=== PATIENT | female | born 1955 | race Caucasian/White ===

== ENCOUNTER 2016-09-05 12:33 | Outpatient (CLI) | payer OTHER ==
[2016-08-15 13:14] VITALS: O2SAT 97
== END 2016-09-05 12:34 | disposition home or self-care (01) | DRG 561 ==
LOC: CONVCARE 12:33
PROVIDERS: ATTEND Orthopaedic Surgery
DX: Z47.1 Aftercare following joint replacement surgery (principal); Z96.651 Presence of right artificial knee joint
CPT/HCPCS: 73560

== ENCOUNTER 2017-02-20 22:44 | Observation (INO) | payer OTHER ==
[2017-02-20] MEDS ORDERED: DEXTROSE 50% 1 VIAL SOL IV PRN (23:52)
[2017-02-20] MEDS ORDERED: GLUCAGON HYDROCHLORIDE 1 MG PDS IM PRN (23:52)
[2017-02-21] MEDS ORDERED: ALBUTEROL HFA 60 PUFF/INHALER INH PRN (01:16)
[2017-02-21] MEDS ORDERED: BUDESONIDE 0.5 MG/2 ML AMPUL.NEB INH PRN (01:16)
[2017-02-21] MEDS ORDERED: ALBUTEROL NEB SOL 2.5MG/3ML 1 VIAL SOL INH PRN (01:16)
[2017-02-21] MEDS ORDERED: FLUTICASONE PROPIONATE TOP PRN (01:16)
[2017-02-21 01:27] VITALS: TEMP 98.2
[2017-02-21] MEDS ORDERED: DULAGLUTIDE 0.75 MG SQ SCH (01:30)
[2017-02-21] MEDS ORDERED: NOVOLOG FLEXPEN SC SCH ×3 (07:00→09:00)
[2017-02-21 07:54] VITALS: BP 143/75
[2017-02-21] MEDS ORDERED: ACETAMINOPHEN 500 MG 500 MG TAB PO ONE (08:19)
[2017-02-21 08:36] LABS: POTASSIUM 3.4 mMol/L (3.5-5.1)
[2017-02-21 08:41] LABS: CALCIUM 9.7 mg/dl (8.5-10.1)
[2017-02-21 08:46] LABS: HEMOGLOBIN A1C 7.1 % (4.8-6.0)
[2017-02-21] MEDS ORDERED: SERTRALINE HYDROCHLORIDE 50 MG TAB PO SCH (09:00)
[2017-02-21] MEDS ORDERED: HYDROCHLOROTHIAZIDE/TRIAMTER 25/37.5 CAPSULE PO SCH (09:00)
[2017-02-21] MEDS ORDERED: GABAPENTIN 300 MG CAP PO SCH (09:00)
[2017-02-21] MEDS ORDERED: AZITHROMYCIN 250 MG TAB PO SCH (09:00)
[2017-02-21] MEDS ORDERED: PROBENECID 500 MG PO SCH (09:00)
[2017-02-21] MEDS ORDERED: INSULIN GLARGINE, RECOMBINAN 100 U/ML SOL SC SCH ×4 (09:00→21:00)
[2017-02-21] MEDS ORDERED: CHOLECALCIFEROL 1,000 IU TAB PO SCH (09:00)
[2017-02-21] MEDS ORDERED: POTASSIUM CHLORIDE 10 MEQ TER PO SCH (09:00)
[2017-02-21] MEDS ORDERED: CLONIDINE 0.1 MG TAB PO SCH (09:00)
[2017-02-21] MEDS ORDERED: Non-Formulary Medication MISC (Budesonide/Formoterol 160/4.5 1 PUFF) IH SCH (09:00)
[2017-02-21] MEDS ORDERED: [UNRECOGNIZED DRUG - MIXTURE] PO SCH (09:00)
[2017-02-21] MEDS ORDERED: PREDNISONE 20 MG TAB PO SCH (09:00)
[2017-02-21] MEDS ORDERED: PANTOPRAZOLE SODIUM 40 MG ECT PO SCH (09:15)
[2017-02-21] MEDS ORDERED: DILTIAZEM XR 180 MG C24 PO SCH (09:15)
[2017-02-21] MEDS ORDERED: CLOTRIMAZOLE 1% CREAM TOP PRN (09:15)
[2017-02-21] MEDS: HUMALOG PEN 100 U/ML SC SCH ×4 (09:18→12:00)
[2017-02-21] MEDS ORDERED: CALCIUM CARBONATE 500 MG TAB PO SCH (09:30)
[2017-02-21 10:16] VITALS: O2SAT 96
[2017-02-21 10:28] VITALS: PULSE 88; RESP 20
[2017-02-21] MEDS ORDERED: POTASSIUM CHLORIDE 10 MEQ TER PO ONE (10:46)
[2017-02-21] MEDS ORDERED: SIMVASTATIN 20 MG TAB PO SCH (21:00)
[2017-02-21] MEDS ORDERED: MONTELUKAST SODIUM 10 MG TAB PO SCH (21:00)
== END 2017-02-21 13:30 | disposition home or self-care (01) | DRG 639 ==
LOC: ED 22:44 → ACUTE CARE 23:36
PROVIDERS: ADMIT Family Medicine; ATTEND Family Medicine
DX: E11.65 Type 2 diabetes mellitus with hyperglycemia (principal); Z79.4 Long term (current) use of insulin
CPT/HCPCS: 36415; 80048; 82962; 83036; 94640; 99218; 99282; J1815; J1817; J7603

== ENCOUNTER 2017-07-17 09:43 | Outpatient (CLI) | payer OTHER ==
[2017-04-10 08:36] VITALS: O2SAT 94
== END 2017-07-17 09:44 | disposition home or self-care (01) | DRG 561 ==
LOC: CONVCARE 09:43
PROVIDERS: ATTEND Orthopaedic Surgery
DX: Z47.1 Aftercare following joint replacement surgery (principal); Z96.651 Presence of right artificial knee joint
CPT/HCPCS: 73562

== ENCOUNTER 2017-09-20 09:16 | Day surgery (SDC) | payer OTHER ==
[2017-09-20] MEDS ORDERED: PROPOFOL 500 MG/50 ML EMU IV ONE (10:15)
[2017-09-20] MEDS ORDERED: LIDOCAINE HCL 1% MPF SOL ONE (10:15)
[2017-09-20] MEDS ORDERED: FENTANYL 100MCG/2ML SOL ONE (10:16)
[2017-09-20] MEDS ORDERED: BUPIVACAINE/EPI 0.5% 10 ML SOL INFIL ONE ×2 (10:32)
[2017-09-20 11:59] VITALS: PULSE 80; RESP 16
[2017-09-20 12:08] VITALS: BP 113/73; TEMP 97; O2SAT 96
== END 2017-09-20 12:20 | disposition home or self-care (01) | DRG 607 ==
LOC: SURG 09:16
PROVIDERS: ATTEND Surgery
DX: L72.3 Sebaceous cyst (principal)
CPT/HCPCS: 99001; G0168; J3010; J2001; J2704

== ENCOUNTER 2017-09-23 18:25 | Emergency (ER) | payer OTHER ==
[2017-09-23 19:17] VITALS: BP 134/76; PULSE 85; RESP 20; TEMP 98.1; O2SAT 97
[2017-09-23] MEDS ORDERED: LIDOCAINE HCL 1% 50 MG/5 ML SOL INFIL ONE (19:38)
[2017-09-23] MEDS ORDERED: LIDOCAINE HCL 1% MPF SOL ONE (19:40)
== END 2017-09-23 20:10 | disposition home or self-care (01) | DRG 921 ==
LOC: ED 18:25
DX: T81.30XA Disruption of wound, unspecified, initial encounter (principal); S31.103A Unspecified open wound of abdominal wall, right lower quadrant without penetration into peritoneal cavity, initial encounter; Z98.890 Other specified postprocedural states
CPT/HCPCS: 12001; 99283; J2001

== ENCOUNTER 2018-06-19 07:30 | Day surgery (SDC) | payer BC, MEDICARE, OTHER ==
[2018-06-19] MEDS ORDERED: BUPIVACAINE HCL 0.25% MPF 30 ML SOL INFIL ONE (08:08)
[2018-06-19] MEDS: DEXAMETHASONE SOD PHOS PF 10 MG/ML SOL IJ ONE ×3 (08:30→08:41)
[2018-06-19 08:51] VITALS: BP 161/63; PULSE 101; RESP 14; TEMP 98.1; O2SAT 94
== END 2018-06-19 09:10 | disposition home or self-care (01) | DRG 552 ==
LOC: SURG 07:30
PROVIDERS: ATTEND Nurse Anesthetist, Certified Registered
DX: M48.062 Spinal stenosis, lumbar region with neurogenic claudication (principal); E11.9 Type 2 diabetes mellitus without complications
CPT/HCPCS: J1100

== ENCOUNTER 2018-08-12 10:27 | Observation (INO) | payer OTHER ==
[2018-08-12] MEDS ORDERED: ONDANSETRON HCL 4 MG/2 ML SOL ONE (10:33)
[2018-08-12] MEDS ORDERED: SODIUM CHLORIDE 0.9% 1000ML 1,000 ML IV ONE (10:34)
[2018-08-12] MEDS ORDERED: ONDANSETRON HCL 4 MG/2 ML SOL IV ONE (10:34)
[2018-08-12] MEDS ORDERED: SODIUM CHLORIDE 0.9% FLUSH 10 ML SOL IV PRN (10:46)
[2018-08-12 10:55] LABS: BASOPHILS % (AUTO) 1 % (0-3); EOSINOPHILS % (AUTO) 2 % (0-9); HEMATOCRIT 42 % (35-47); HEMOGLOBIN 13.8 gm/dl (12.0-15.5); LYMPHOCYTES % (AUTO) 30.1 % (10-50); MEAN CORPUSCULAR HGB CONC 32.9 gm/dl (32.0-36.0); MEAN CORPUSCULAR VOLUME 88 fL (81-99); MONOCYTES % (AUTO) 5.6 % (0-12); NEUTROPHILS % (AUTO) 61.7 % (37-80)
[2018-08-12 11:09] LABS: ALBUMIN 3.3 gm/dl (3.4-5.0); BILIRUBIN,TOTAL 0.8 mg/dl (0.2-1.0); CALCIUM 8.9 mg/dl (8.5-10.1); CARBON DIOXIDE 29.4 mEq/L (21-32); CREATININE 1.2 mg/dl (0.60-1.00); POTASSIUM 3.7 mMol/L (3.5-5.1); TOTAL PROTEIN 7.2 gm/dl (6.4-8.2)
[2018-08-12] MEDS ORDERED: PROCHLORPERAZINE EDISYLATE 5 MG/ML SOL ONE (11:32)
[2018-08-12] MEDS ORDERED: PROCHLORPERAZINE EDISYLATE 5 MG/ML SOL IV ONE (11:32)
[2018-08-12 13:45] LABS: APPEARANCE,URINE Clear; BILIRUBIN,URINE NEGATIVE (NEGATIVE); COLOR,URINE Yellow; GLUCOSE, URINE (UA) NEGATIVE (NEGATIVE); KETONES,URINE NEGATIVE (NEGATIVE); LEUKOCYTE ESTERASE ,URINE NEGATIVE (NEGATIVE); NITRATE,URINE NEGATIVE (NEGATIVE); OCCULT BLOOD,URINE NEGATIVE (NEG-TRACE); PH,URINE 5.5; UROBILINOGEN,URINE 0.2 (0.2-1.0 EU)
[2018-08-12 13:55] LABS: BACTERIA 1+ (< 1+); CRYSTALS NEGATIVE (0-3 AVE/HPF); EPITHELIAL CELLS 0-1 (SQUAMOUS); RBC,URINE 0-1 (0-3AV/HPF); WBC,URINE 0-1 (0-5AV/HPF)
[2018-08-12] MEDS ORDERED: ALBUTEROL HFA 60 PUFF/INHALER INH PRN (16:48)
[2018-08-12] MEDS ORDERED: KETOCONAZOLE CREAM 2% CRE TP PRN (16:48)
[2018-08-12] MEDS ORDERED: FLUTICASONE 110 MCG INH PRN (16:48)
[2018-08-12] MEDS ORDERED: ALENDRONATE 70 MG TAB PO SCH (17:00)
[2018-08-12] MEDS ORDERED: GABAPENTIN 300 MG CAP PO SCH (18:00)
[2018-08-12] MEDS: NOVOLOG FLEXPEN SC SCH ×2 (18:47→20:44)
[2018-08-12] MEDS ORDERED: MONTELUKAST SODIUM 10 MG TAB ONE (20:00)
[2018-08-12] MEDS ORDERED: CLONIDINE 0.1 MG TAB ONE (20:33)
[2018-08-12] MEDS: PROBENECID 500 MG PO SCH (20:41)
[2018-08-12] MEDS: MECLIZINE HYDROCHLORIDE 12.5 MG TAB PO SCH (20:41)
[2018-08-12] MEDS: PANTOPRAZOLE SODIUM 40 MG ECT PO SCH (20:42)
[2018-08-12] MEDS ORDERED: MONTELUKAST SODIUM 5 MG CTB PO SCH (21:00)
[2018-08-12] MEDS ORDERED: SIMVASTATIN 20 MG TAB PO SCH (21:00)
[2018-08-12] MEDS ORDERED: OMEPRAZOLE 20 MG CAPSULE PO SCH (21:00)
[2018-08-12] MEDS ORDERED: CALCIUM CARBONATE PO SCH (21:00)
[2018-08-12] MEDS ORDERED: VITAMIN D3 PO SCH (21:00)
[2018-08-12] MEDS ORDERED: AMITRIPTYLINE 25 MG TAB PO SCH (21:00)
[2018-08-12] MEDS ORDERED: CLONIDINE 0.2 MG PO SCH (21:00)
[2018-08-12] MEDS ORDERED: [UNRECOGNIZED DRUG - OTHER] PO SCH (21:00)
[2018-08-12] MEDS: CLONIDINE 0.1 MG TAB PO SCH (21:06)
[2018-08-13 07:18] LABS: CALCIUM 8.3 mg/dl (8.5-10.1); CARBON DIOXIDE 32.6 mEq/L (21-32); CREATININE 1.12 mg/dl (0.60-1.00); POTASSIUM 3.4 mMol/L (3.5-5.1)
[2018-08-13] MEDS: NOVOLOG FLEXPEN SC SCH ×2 (07:49→11:55)
[2018-08-13 07:53] VITALS: BP 123/74; PULSE 77; RESP 20; TEMP 97.7; O2SAT 97
[2018-08-13] MEDS ORDERED: POTASSIUM CHLORIDE 10 MEQ TER PO SCH (09:00)
[2018-08-13] MEDS ORDERED: IRON PO SCH (09:00)
[2018-08-13] MEDS ORDERED: MAGNESIUM 250 MG PO SCH (09:00)
[2018-08-13] MEDS ORDERED: [UNRECOGNIZED DRUG - OTHER] PO SCH (09:00)
[2018-08-13] MEDS ORDERED: DILTIAZEM 180 MG PO SCH (09:00)
[2018-08-13] MEDS ORDERED: HERBAL CMPLX PO SCH (09:00)
[2018-08-13] MEDS ORDERED: MV MN PO SCH (09:00)
[2018-08-13] MEDS: PROBENECID 500 MG PO SCH (09:12)
[2018-08-13] MEDS: INSULIN DEGLUDEC 200 UNIT/ML INSULN.PEN SQ SCH ×2 (09:12→09:13)
[2018-08-13] MEDS: CLONIDINE 0.1 MG TAB PO SCH (09:18)
[2018-08-13] MEDS: MECLIZINE HYDROCHLORIDE 12.5 MG TAB PO SCH ×2 (09:18→14:04)
[2018-08-13] MEDS: PANTOPRAZOLE SODIUM 40 MG ECT PO SCH (09:18)
[2018-08-13] MEDS ORDERED: MAGNESIUM OXIDE 400 MG TAB PO SCH (09:30)
[2018-08-13] MEDS ORDERED: HYDROCHLOROTHIAZIDE/TRIAMTER 25/37.5 CAPSULE PO SCH (09:30)
[2018-08-13] MEDS ORDERED: DILTIAZEM XR 180 MG C24 PO SCH (09:30)
[2018-08-13] MEDS ORDERED: MONTELUKAST SODIUM 10 MG TAB PO SCH (21:00)
[2018-08-16] MEDS ORDERED: ALENDRONATE 70 MG TAB PO SCH (17:00)
== END 2018-08-13 15:10 | disposition home or self-care (01) | DRG 149 ==
LOC: ED 10:27 → ACUTE CARE 15:08 → UNDOADMIN 15:08 → ACUTE CARE 15:10 → INTOOBSV 15:10 → ACUTE CARE 15:15 → UNDOADMIN 15:15 → UNDODISIN 08-13 15:10
PROVIDERS: ADMIT Family Medicine; ATTEND Family Medicine
DX: R42 Dizziness and giddiness (principal); R11.2 Nausea with vomiting, unspecified; Z79.4 Long term (current) use of insulin; E11.9 Type 2 diabetes mellitus without complications
CPT/HCPCS: 36415; 70450; 74176; 80048; 80053; 81001; 82962; 83880; 84484; 85025; 93005; 93012; 96365; 96366; 96374; 96375; 99220; 99285; J0780; J2405; A9270-GY; J1815

== ENCOUNTER 2018-08-14 17:54 | Observation (INO) | payer OTHER ==
[2018-08-14] MEDS: SODIUM CHLORIDE 0.9% FLUSH 10 ML SOL IV SCH ×2 (18:15→18:36)
[2018-08-14] MEDS: ONDANSETRON HCL 4 MG/2 ML SOL IV PRN (18:35)
[2018-08-14] MEDS ORDERED: HYDROMORPHONE 1 MG/ML SYRINGE IV ONE (19:30)
[2018-08-14] MEDS ORDERED: MONTELUKAST SODIUM 5 MG CTB PO SCH (21:00)
[2018-08-14] MEDS ORDERED: NOVOLOG FLEXPEN SC SCH (21:00)
[2018-08-14] MEDS: PROCHLORPERAZINE EDISYLATE 5 MG/ML SOL IV SCH (21:53)
[2018-08-14] MEDS: DEXTROSE/SALINE 0.45/KCL 20MEQ 1,000 ML/1,000 ML SOL IV SCH (21:54)
[2018-08-14] MEDS: AMITRIPTYLINE 25 MG TAB PO SCH (21:57)
[2018-08-14] MEDS: PROBENECID 500 MG PO SCH (22:04)
[2018-08-14] MEDS: CLONIDINE 0.1 MG TAB PO SCH (22:05)
[2018-08-15] MEDS: ONDANSETRON HCL 4 MG/2 ML SOL IV PRN (01:08)
[2018-08-15] MEDS: SODIUM CHLORIDE 0.9% FLUSH 10 ML SOL IV SCH ×5 (01:18→18:21)
[2018-08-15] MEDS: PROCHLORPERAZINE EDISYLATE 5 MG/ML SOL IV SCH ×3 (03:24→14:35)
[2018-08-15] MEDS: DEXTROSE/SALINE 0.45/KCL 20MEQ 1,000 ML/1,000 ML SOL IV SCH ×2 (06:07→18:17)
[2018-08-15] MEDS ORDERED: LORAZEPAM 2 MG/ML SOL IV PRN (08:22)
[2018-08-15] MEDS ORDERED: DILTIAZEM 180 MG PO SCH (09:00)
[2018-08-15] MEDS ORDERED: PANTOPRAZOLE SODIUM 40 MG/10 ML PDS IV SCH (09:00)
[2018-08-15] MEDS ORDERED: INSULIN DEGLUDEC SQ SCH (09:00)
[2018-08-15] MEDS: NOVOLOG FLEXPEN SC SCH ×6 (09:14→17:27)
[2018-08-15 09:19] LABS: BASOPHILS % (AUTO) 1 % (0-3); EOSINOPHILS % (AUTO) 2 % (0-9); HEMATOCRIT 45 % (35-47); HEMOGLOBIN 14.7 gm/dl (12.0-15.5); LYMPHOCYTES % (AUTO) 30.8 % (10-50); MEAN CORPUSCULAR HEMOGLOBIN 28.7 pg (27.0-32.0); MEAN CORPUSCULAR HGB CONC 32.5 gm/dl (32.0-36.0); MEAN CORPUSCULAR VOLUME 88 fL (81-99); NEUTROPHILS % (AUTO) 59.5 % (37-80)
[2018-08-15] MEDS ORDERED: DIPHENHYDRAMINE 50 MG/ML SOL IV PRN (09:26)
[2018-08-15] MEDS ORDERED: EPINEPHRINE 1:1000 AMP 1 MG/ML SOL IM PRN (09:28)
[2018-08-15 09:31] LABS: ALBUMIN 3.1 gm/dl (3.4-5.0); BILIRUBIN,TOTAL 1.1 mg/dl (0.2-1.0); CALCIUM 8.8 mg/dl (8.5-10.1); CARBON DIOXIDE 32.1 mEq/L (21-32); CREATININE 1.01 mg/dl (0.60-1.00); POTASSIUM 3.4 mMol/L (3.5-5.1); TOTAL PROTEIN 7.2 gm/dl (6.4-8.2)
[2018-08-15] MEDS: PROBENECID 500 MG PO SCH ×2 (11:20→20:34)
[2018-08-15] MEDS: CLONIDINE 0.1 MG TAB PO SCH ×2 (11:21→20:33)
[2018-08-15] MEDS: HYDROCHLOROTHIAZIDE/TRIAMTER 25/37.5 CAPSULE PO SCH (11:26)
[2018-08-15] MEDS: DILTIAZEM XR 180 MG C24 PO SCH (11:36)
[2018-08-15] MEDS ORDERED: POTASSIUM CHLORIDE 10 MEQ CAPSULE PO ONE (17:15)
[2018-08-15] MEDS ORDERED: ONDANSETRON HCL 4 MG TAB PO PRN (17:20)
[2018-08-15] MEDS ORDERED: PROCHLORPERAZINE MALEATE 5 MG TAB PO PRN (17:20)
[2018-08-15] MEDS ORDERED: GABAPENTIN 300 MG CAP PO SCH (18:00)
[2018-08-15] MEDS ORDERED: POTASSIUM CHLORIDE 10 MEQ TER ONE (18:00)
[2018-08-15] MEDS: AMITRIPTYLINE 25 MG TAB PO SCH (20:33)
[2018-08-15] MEDS ORDERED: MONTELUKAST SODIUM 10 MG TAB PO SCH (21:00)
[2018-08-16 07:17] LABS: ALBUMIN 2.9 gm/dl (3.4-5.0); CALCIUM 8.5 mg/dl (8.5-10.1); CARBON DIOXIDE 31.3 mEq/L (21-32); CREATININE 1.1 mg/dl (0.60-1.00); POTASSIUM 3.8 mMol/L (3.5-5.1)
[2018-08-16 07:54] VITALS: RESP 20; TEMP 97.5
[2018-08-16] MEDS: NOVOLOG FLEXPEN SC SCH ×4 (08:52→12:47)
[2018-08-16] MEDS ORDERED: PANTOPRAZOLE SODIUM 40 MG ECT PO SCH (09:00)
[2018-08-16 09:01] VITALS: BP 129/77; PULSE 89; O2SAT 98
[2018-08-16] MEDS: CLONIDINE 0.1 MG TAB PO SCH (09:16)
[2018-08-16] MEDS: DILTIAZEM XR 180 MG C24 PO SCH (09:16)
[2018-08-16] MEDS: INSULIN DEGLUDEC SQ SCH ×2 (09:18→09:20)
[2018-08-16] MEDS: HYDROCHLOROTHIAZIDE/TRIAMTER 25/37.5 CAPSULE PO SCH (09:22)
[2018-08-16] MEDS: PROBENECID 500 MG PO SCH (09:22)
== END 2018-08-16 14:20 | disposition home or self-care (01) | DRG 149 ==
LOC: ACUTE CARE 18:01
PROVIDERS: ADMIT Family Medicine; ATTEND Family Medicine
DX: R42 Dizziness and giddiness (principal); R11.2 Nausea with vomiting, unspecified; E86.0 Dehydration; E11.9 Type 2 diabetes mellitus without complications; Z79.4 Long term (current) use of insulin
CPT/HCPCS: 36415; 70544; 70551; 80053; 82962; 85025; J0780; J1200; J2060; J2405; A9270-GY; J1170; J1815

== ENCOUNTER → 2018-08-28 | Day surgery (SDC) | payer OTHER ==
[~2018-08-28] MED LIST: BUPIVACAINE HCL 0.25% MPF 30 ML SOL INFIL ONE
[2018-08-28 13:48] VITALS: TEMP 98.2
[2018-08-28] MEDS: DEXAMETHASONE SOD PHOS PF 10 MG/ML SOL IJ ONE (14:28)
[2018-08-28 14:31] VITALS: RESP 24
[2018-08-28 14:41] VITALS: BP 133/69; PULSE 92; O2SAT 94
== END | disposition home or self-care (01) | DRG 552 ==
LOC: SURG 13:26
PROVIDERS: ATTEND Nurse Anesthetist, Certified Registered
DX: M51.17 Intervertebral disc disorders with radiculopathy, lumbosacral region (principal); E11.9 Type 2 diabetes mellitus without complications
CPT/HCPCS: J1100

== ENCOUNTER 2018-09-01 10:49 | Emergency (ER) | payer OTHER ==
[2018-09-01 11:12] VITALS: TEMP 97.3
[2018-09-01] MEDS ORDERED: ONDANSETRON HCL 4 MG/2 ML SOL IV ONE (11:12)
[2018-09-01] MEDS ORDERED: ONDANSETRON HCL 4 MG/2 ML SOL ONE (11:12)
[2018-09-01 11:14] LABS: BASOPHILS % (AUTO) 1 % (0-3); EOSINOPHILS % (AUTO) 1 % (0-9); HEMATOCRIT 47 % (35-47); HEMOGLOBIN 15.5 gm/dl (12.0-15.5); LYMPHOCYTES % (AUTO) 26.4 % (10-50); MEAN CORPUSCULAR HEMOGLOBIN 29.1 pg (27.0-32.0); MEAN CORPUSCULAR HGB CONC 33.3 gm/dl (32.0-36.0); MEAN CORPUSCULAR VOLUME 88 fL (81-99); MONOCYTES % (AUTO) 6.1 % (0-12); NEUTROPHILS % (AUTO) 65.4 % (37-80)
[2018-09-01 11:26] LABS: ALBUMIN 3.6 gm/dl (3.4-5.0); BILIRUBIN,TOTAL 0.7 mg/dl (0.2-1.0); CALCIUM 9.1 mg/dl (8.5-10.1); CARBON DIOXIDE 25.9 mEq/L (21-32); CREATININE 1.52 mg/dl (0.60-1.00); POTASSIUM 3.3 mMol/L (3.5-5.1); TOTAL PROTEIN 7.7 gm/dl (6.4-8.2)
[2018-09-01] MEDS ORDERED: POTASSIUM CHLORIDE 10 MEQ TER PO ONE (12:01)
[2018-09-01] MEDS ORDERED: POTASSIUM CHLORIDE 10 MEQ TER ONE (12:03)
[2018-09-01 14:41] VITALS: BP 142/79; PULSE 84; RESP 18; O2SAT 98
== END 2018-09-01 14:00 | disposition home or self-care (01) | DRG 101 ==
LOC: ED 10:49
DX: R56.9 Unspecified convulsions (principal); N30.00 Acute cystitis without hematuria; I45.81 Long QT syndrome; E11.9 Type 2 diabetes mellitus without complications; Z79.4 Long term (current) use of insulin
CPT/HCPCS: 36415; 70450; 80053; 83735; 84484; 85025; 93005; 96374; 99284; 99285; J2405; A9270-GY

== ENCOUNTER 2018-09-16 23:22 | Emergency (ER) | payer OTHER ==
[2018-09-16] MEDS ORDERED: SODIUM CHLORIDE 0.9% 1000ML 1,000 ML IV SCH (23:45)
[2018-09-17] LABS: BASOPHILS % (AUTO) 1 % (0-3); EOSINOPHILS % (AUTO) 0 % (0-9); HEMATOCRIT 38 % (35-47); HEMOGLOBIN 12.7 gm/dl (12.0-15.5); MEAN CORPUSCULAR HEMOGLOBIN 29.2 pg (27.0-32.0); MEAN CORPUSCULAR VOLUME 89 fL (81-99); MONOCYTES % (AUTO) 7.2 % (0-12); NEUTROPHILS % (AUTO) 84.1 % (37-80)
[2018-09-17 00:03] LABS: CALCIUM 9.3 mg/dl (8.5-10.1); CARBON DIOXIDE 23.9 mEq/L (21-32); CREATININE 1.73 mg/dl (0.60-1.00); POTASSIUM 3.8 mMol/L (3.5-5.1)
[2018-09-17 00:23] VITALS: TEMP 98.7
[2018-09-17 00:57] LABS: APPEARANCE,URINE Cloudy; BILIRUBIN,URINE NEGATIVE (NEGATIVE); COLOR,URINE Orange; GLUCOSE, URINE (UA) NEGATIVE (NEGATIVE); KETONES,URINE NEGATIVE (NEGATIVE); LEUKOCYTE ESTERASE ,URINE 3+ (NEGATIVE); NITRATE,URINE POSITIVE (NEGATIVE); OCCULT BLOOD,URINE 2+ (NEG-TRACE)
[2018-09-17 00:58] VITALS: PULSE 94
[2018-09-17 01:12] LABS: BACTERIA 4+ (< 1+); CRYSTALS NEGATIVE (0-3 AVE/HPF); EPITHELIAL CELLS 0-3 (SQUAMOUS); WBC,URINE 60-80 (0-5AV/HPF)
[2018-09-17] MEDS ORDERED: CIPROFLOXACIN HCL 500 MG TAB PO ONE (01:15)
[2018-09-17 02:10] VITALS: BP 116/60; RESP 18; O2SAT 95
== END 2018-09-17 02:00 | disposition home or self-care (01) | DRG 690 ==
LOC: ED 23:22
DX: N30.00 Acute cystitis without hematuria (principal); N17.9 Acute kidney failure, unspecified; E11.9 Type 2 diabetes mellitus without complications; E86.0 Dehydration
CPT/HCPCS: 70450; 71045; 80048; 81001; 85025; 87077; 87088; 87186; 93005; 96365; 96366; 99283; 99285; A9270-GY

== ENCOUNTER 2018-09-17 14:53 | Inpatient (IN) | payer OTHER ==
[2018-09-17] MEDS: SODIUM CHLORIDE 0.9% 1000ML 1,000 ML IV SCH ×3 (17:30→21:21)
[2018-09-17] MEDS ORDERED: ONDANSETRON HCL 4 MG TAB PO PRN (18:05)
[2018-09-17] MEDS ORDERED: LORAZEPAM 0.5 MG TAB PO PRN (18:05)
[2018-09-17] MEDS ORDERED: IPRATROPIUM BROMIDE 1 VIAL SOL NEB SCH (18:15)
[2018-09-17] MEDS: SODIUM CHLORIDE 0.9% FLUSH 10 ML SOL IV SCH (19:37)
[2018-09-17] MEDS: GABAPENTIN 300 MG CAP PO SCH ×3 (20:04→21:44)
[2018-09-17] MEDS ORDERED: SODIUM CHLORIDE 0.9% 1000 ML SOL IV SCH (20:30)
[2018-09-17] MEDS ORDERED: NOVOLOG FLEXPEN SC SCH (21:00)
[2018-09-17] MEDS ORDERED: MONTELUKAST SODIUM 5 MG CTB PO SCH (21:00)
[2018-09-17] MEDS: AMITRIPTYLINE 25 MG TAB PO SCH (21:05)
[2018-09-17] MEDS: CLONIDINE 0.1 MG TAB PO SCH (21:05)
[2018-09-17] MEDS: NOVOLOG FLEXPEN SC SCH (21:05)
[2018-09-17] MEDS: CIPROFLOXACIN HCL 500 MG TAB PO SCH (21:06)
[2018-09-17] MEDS: MECLIZINE HYDROCHLORIDE 12.5 MG TAB PO PRN (21:09)
[2018-09-18] MEDS: SODIUM CHLORIDE 0.9% FLUSH 10 ML SOL IV SCH ×4 (01:28→20:57)
[2018-09-18] MEDS ORDERED: SODIUM CHLORIDE 0.9% 1000ML 1,000 ML IV SCH (05:30)
[2018-09-18 07:17] LABS: CALCIUM 8.1 mg/dl (8.5-10.1); CARBON DIOXIDE 24.3 mEq/L (21-32); CREATININE 1.74 mg/dl (0.60-1.00); POTASSIUM 3.7 mMol/L (3.5-5.1)
[2018-09-18 07:33] LABS: BASOPHILS % (AUTO) 1 % (0-3); EOSINOPHILS % (AUTO) 0 % (0-9); HEMATOCRIT 33 % (35-47); HEMOGLOBIN 10.9 gm/dl (12.0-15.5); MEAN CORPUSCULAR HEMOGLOBIN 29.6 pg (27.0-32.0); MEAN CORPUSCULAR HGB CONC 32.9 gm/dl (32.0-36.0); MEAN CORPUSCULAR VOLUME 90 fL (81-99); MONOCYTES % (AUTO) 7.1 % (0-12); NEUTROPHILS % (AUTO) 80.7 % (37-80)
[2018-09-18] MEDS: PANTOPRAZOLE SODIUM 40 MG ECT PO SCH (08:49)
[2018-09-18] MEDS: CIPROFLOXACIN HCL 500 MG TAB PO SCH (08:49)
[2018-09-18] MEDS: CLONIDINE 0.1 MG TAB PO SCH ×2 (08:49→20:38)
[2018-09-18] MEDS ORDERED: POTASSIUM CHLORIDE 10 MEQ TER ONE (08:58)
[2018-09-18] MEDS: POTASSIUM CHLORIDE 10 MEQ CAPSULE PO SCH ×2 (09:01→12:06)
[2018-09-18] MEDS: INSULIN DEGLUDEC SQ SCH ×2 (09:07→09:09)
[2018-09-18] MEDS: POTASSIUM CHLORIDE 10 MEQ TER PO SCH (09:07)
[2018-09-18] MEDS: PROBENECID 500 MG PO SCH ×3 (12:05→20:40)
[2018-09-18] MEDS: FLUTICASONE INH SCH ×2 (12:05→20:40)
[2018-09-18] MEDS: SALMETEROL INH SCH ×2 (12:05→20:40)
[2018-09-18] MEDS: [UNRECOGNIZED DRUG - OTHER] INH SCH ×2 (12:05→20:40)
[2018-09-18] MEDS: NOVOLOG FLEXPEN SC SCH ×3 (12:48→17:35)
[2018-09-18] MEDS: DILTIAZEM XR 180 MG C24 PO SCH (12:50)
[2018-09-18] MEDS ORDERED: SODIUM CHLORIDE 0.9% 100 ML 100 ML IV ONE (13:22)
[2018-09-18] MEDS ORDERED: GENTAMICIN SULFATE 40 MG/ML SOL ONE (13:22)
[2018-09-18] MEDS: SODIUM CHLORIDE 0.9% IV SCH (13:29)
[2018-09-18] MEDS: GENTAMICIN SULFATE IV SCH (13:29)
[2018-09-18] MEDS: GABAPENTIN 300 MG CAP PO SCH (17:49)
[2018-09-18] MEDS: ACETAMINOPHEN 500 MG 500 MG TAB PO PRN (17:54)
[2018-09-18] MEDS: MECLIZINE HYDROCHLORIDE 12.5 MG TAB PO PRN (17:54)
[2018-09-18] MEDS: AMITRIPTYLINE 25 MG TAB PO SCH (20:39)
[2018-09-18] MEDS: MONTELUKAST SODIUM 10 MG TAB PO SCH (20:41)
[2018-09-18] MEDS ORDERED: NOVOLOG FLEXPEN SC ONE (20:47)
[2018-09-19] MEDS ORDERED: SODIUM CHLORIDE 0.9% 100 ML 100 ML IV ONE ×3 (00:21→23:42)
[2018-09-19] MEDS ORDERED: GENTAMICIN SULFATE 40 MG/ML SOL ONE ×3 (00:21→23:41)
[2018-09-19] MEDS: SODIUM CHLORIDE 0.9% IV SCH ×2 (00:29→12:19)
[2018-09-19] MEDS: GENTAMICIN SULFATE IV SCH ×2 (00:29→12:19)
[2018-09-19] MEDS: SODIUM CHLORIDE 0.9% FLUSH 10 ML SOL IV SCH ×4 (00:30→17:21)
[2018-09-19 07:29] LABS: BASOPHILS % (AUTO) 1 % (0-3); EOSINOPHILS % (AUTO) 1 % (0-9); HEMATOCRIT 32 % (35-47); HEMOGLOBIN 10.4 gm/dl (12.0-15.5); LYMPHOCYTES % (AUTO) 12.1 % (10-50); MEAN CORPUSCULAR HEMOGLOBIN 28.7 pg (27.0-32.0); MEAN CORPUSCULAR HGB CONC 32.4 gm/dl (32.0-36.0); MEAN CORPUSCULAR VOLUME 89 fL (81-99); MONOCYTES % (AUTO) 7.1 % (0-12); NEUTROPHILS % (AUTO) 78.7 % (37-80)
[2018-09-19 07:38] LABS: CALCIUM 8.2 mg/dl (8.5-10.1); CARBON DIOXIDE 23.4 mEq/L (21-32); CREATININE 1.62 mg/dl (0.60-1.00); POTASSIUM 3.7 mMol/L (3.5-5.1)
[2018-09-19] MEDS: DILTIAZEM XR 180 MG C24 PO SCH (09:35)
[2018-09-19] MEDS: CLONIDINE 0.1 MG TAB PO SCH ×2 (09:35→21:28)
[2018-09-19] MEDS: INSULIN DEGLUDEC SQ SCH (09:37)
[2018-09-19] MEDS: SALMETEROL INH SCH ×2 (09:38→21:29)
[2018-09-19] MEDS: FLUTICASONE INH SCH ×2 (09:38→21:29)
[2018-09-19] MEDS: [UNRECOGNIZED DRUG - OTHER] INH SCH ×2 (09:38→21:29)
[2018-09-19] MEDS: PANTOPRAZOLE SODIUM 40 MG ECT PO SCH (09:39)
[2018-09-19] MEDS: PROBENECID 500 MG PO SCH ×2 (09:39→21:28)
[2018-09-19] MEDS: POTASSIUM CHLORIDE 10 MEQ TER PO SCH (09:39)
[2018-09-19] MEDS: NOVOLOG FLEXPEN SC SCH ×3 (09:42→17:22)
[2018-09-19] MEDS: VANCOMYCIN HCL 125 MG CAP PO SCH ×4 (09:48→21:29)
[2018-09-19] MEDS: GABAPENTIN 300 MG CAP PO SCH (17:22)
[2018-09-19] MEDS: ACETAMINOPHEN 500 MG 500 MG TAB PO PRN (17:30)
[2018-09-19] MEDS: AMITRIPTYLINE 25 MG TAB PO SCH (21:27)
[2018-09-19] MEDS: MONTELUKAST SODIUM 10 MG TAB PO SCH (21:29)
[2018-09-19] MEDS ORDERED: NOVOLOG FLEXPEN SC ONE (21:31)
[2018-09-20] MEDS: SODIUM CHLORIDE 0.9% FLUSH 10 ML SOL IV SCH ×2 (00:11→09:55)
[2018-09-20] MEDS: SODIUM CHLORIDE 0.9% IV SCH ×2 (00:12→13:00)
[2018-09-20] MEDS: GENTAMICIN SULFATE IV SCH ×2 (00:12→13:00)
[2018-09-20 07:14] LABS: BASOPHILS % (AUTO) 1 % (0-3); EOSINOPHILS % (AUTO) 2 % (0-9); HEMATOCRIT 33 % (35-47); HEMOGLOBIN 10.7 gm/dl (12.0-15.5); MEAN CORPUSCULAR HEMOGLOBIN 28.6 pg (27.0-32.0); MEAN CORPUSCULAR HGB CONC 32.1 gm/dl (32.0-36.0); MEAN CORPUSCULAR VOLUME 89 fL (81-99); MONOCYTES % (AUTO) 8.4 % (0-12)
[2018-09-20 07:23] LABS: ALBUMIN 2.1 gm/dl (3.4-5.0); BILIRUBIN,TOTAL 0.7 mg/dl (0.2-1.0); CALCIUM 8.6 mg/dl (8.5-10.1); CREATININE 1.32 mg/dl (0.60-1.00); POTASSIUM 4.1 mMol/L (3.5-5.1); TOTAL PROTEIN 6.4 gm/dl (6.4-8.2)
[2018-09-20 09:42] VITALS: BP 110/68; PULSE 92; RESP 18; O2SAT 98
[2018-09-20] MEDS: CLONIDINE 0.1 MG TAB PO SCH (09:43)
[2018-09-20] MEDS: DILTIAZEM XR 180 MG C24 PO SCH (09:43)
[2018-09-20] MEDS: POTASSIUM CHLORIDE 10 MEQ TER PO SCH (09:44)
[2018-09-20] MEDS: VANCOMYCIN HCL 125 MG CAP PO SCH ×2 (09:45→14:10)
[2018-09-20] MEDS: PANTOPRAZOLE SODIUM 40 MG ECT PO SCH (09:45)
[2018-09-20] MEDS: PROBENECID 500 MG PO SCH (09:45)
[2018-09-20] MEDS: NOVOLOG FLEXPEN SC SCH ×2 (09:47→12:59)
[2018-09-20] MEDS: INSULIN DEGLUDEC SQ SCH (09:48)
[2018-09-20] MEDS: [UNRECOGNIZED DRUG - OTHER] INH SCH (09:56)
[2018-09-20] MEDS: SALMETEROL INH SCH (09:56)
[2018-09-20] MEDS: FLUTICASONE INH SCH (09:56)
[2018-09-20] MEDS ORDERED: GENTAMICIN SULFATE IV SCH (10:00)
[2018-09-20] MEDS ORDERED: SODIUM CHLORIDE 0.9% IV SCH (10:00)
[2018-09-20 12:51] VITALS: TEMP 99.7
== END 2018-09-20 13:35 | disposition home or self-care (01) | DRG 372 ==
LOC: ACUTE CARE 14:53 → OBSVTOIN 09-19 18:00
PROVIDERS: ADMIT Family Medicine; ATTEND Family Medicine
PROC: F01K5YZ Range of Motion and Joint Integrity Assessment of Musculoskeletal System - Upper Back / Upper Extremity using Other Equipment (ICD-10-PCS; principal; 2018-09-18)
PROC: F01K0FZ Muscle Performance Assessment of Musculoskeletal System - Upper Back / Upper Extremity using Assistive, Adaptive, Supportive or Protective Equipment (ICD-10-PCS; 2018-09-18)
PROC: F02Z0FZ Bathing/Showering Assessment using Assistive, Adaptive, Supportive or Protective Equipment (ICD-10-PCS; 2018-09-18)
PROC: F02Z3FZ Grooming/Personal Hygiene Assessment using Assistive, Adaptive, Supportive or Protective Equipment (ICD-10-PCS; 2018-09-18)
DX: E86.0 Dehydration (principal); A04.72 Enterocolitis due to Clostridium difficile, not specified as recurrent; N17.9 Acute kidney failure, unspecified; N30.00 Acute cystitis without hematuria; E87.6 Hypokalemia; R53.1 Weakness; E11.9 Type 2 diabetes mellitus without complications; Z79.4 Long term (current) use of insulin
CPT/HCPCS: 36415; 80048; 80053; 82962; 85025; J1580; A9270-GY; J1815

== ENCOUNTER 2018-12-10 11:42 | Outpatient (CLI) | payer OTHER ==
[2018-09-20 09:42] VITALS: O2SAT 98
== END 2018-12-10 11:43 | disposition home or self-care (01) | DRG 554 ==
LOC: CONVCARE 11:42
PROVIDERS: ATTEND Orthopaedic Surgery
DX: M17.12 Unilateral primary osteoarthritis, left knee (principal)
CPT/HCPCS: 73562

== ENCOUNTER 2019-01-07 05:23 | Inpatient (IN) | payer OTHER ==
[2019-01-07] MEDS: SCOPOLAMINE 1.5MG PATCH TD SCH (05:44)
[2019-01-07] MEDS ORDERED: SODIUM CHLORIDE 0.9% 1000ML 1,000 ML IV SCH ×2 (06:30→07:30)
[2019-01-07] MEDS ORDERED: CELECOXIB 100 MG CAP PO ONE (07:00)
[2019-01-07] MEDS ORDERED: BUPIVACAINE LIPOSOME 20 ML SUS ONE (07:10)
[2019-01-07] MEDS ORDERED: SODIUM CHLORIDE 20 ML 20 ML ONE (07:11)
[2019-01-07] MEDS ORDERED: BUPIVACAINE HCL 0.25% MPF 30 ML SOL INFIL ONE (07:11)
[2019-01-07] MEDS ORDERED: PROPOFOL 500 MG/50 ML EMU IV ONE (07:48)
[2019-01-07] MEDS ORDERED: MORPHINE SULFATE 0.5 MG/ML SOL ONE (07:48)
[2019-01-07] MEDS ORDERED: MIDAZOLAM 2 MG/2 ML SOL ONE (07:48)
[2019-01-07] MEDS ORDERED: KETAMINE HYDROCHLORIDE 50 MG/ML SOL ONE (07:48)
[2019-01-07] MEDS ORDERED: CLINDAMYCIN 150 MG/ML SOL ONE ×3 (07:54→22:17)
[2019-01-07] MEDS ORDERED: ONDANSETRON HCL 4 MG/2 ML SOL ONE (07:55)
[2019-01-07] MEDS ORDERED: METOCLOPRAMIDE HYDROCHLORIDE 5 MG/ML SOL ONE (07:55)
[2019-01-07] MEDS: TRANEXAMIC ACID 100 MG/ML SOL ONE ×2 (08:45→10:00)
[2019-01-07] MEDS: SODIUM CHLORIDE 0.9% FLUSH 10 ML SOL IV PRN (09:42)
[2019-01-07] MEDS ORDERED: SODIUM CHLORIDE 0.9% 500 ML 500 ML IV PRN (10:06)
[2019-01-07] MEDS ORDERED: DIAZEPAM 5 MG TAB PO PRN (10:06)
[2019-01-07] MEDS ORDERED: ACETAMINOPHEN 325 MG PO PRN (10:06)
[2019-01-07] MEDS ORDERED: EPHEDRINE SULFATE 50 MG/ML SOL ONE (10:55)
[2019-01-07] MEDS: DEXTROSE/SALINE 0.45/KCL 20MEQ 1,000 ML/1,000 ML SOL IV SCH ×2 (12:11→23:26)
[2019-01-07] MEDS: SODIUM CHLORIDE 0.9% FLUSH 10 ML SOL IV SCH ×3 (12:14→23:31)
[2019-01-07] MEDS: ONDANSETRON 4 MG ODT BU PRN (12:39)
[2019-01-07] MEDS ORDERED: CYCLOBENZAPRINE 10 MG TAB PO PRN (12:45)
[2019-01-07] MEDS ORDERED: ONDANSETRON HCL 4 MG/2 ML SOL IV PRN (13:40)
[2019-01-07] MEDS: APAP/OXYCODONE 1 EACH TABLET PO PRN ×2 (15:18→19:28)
[2019-01-07] MEDS ORDERED: SODIUM CHLORIDE 0.9% 100 ML 100 ML IV ONE ×2 (15:59→22:17)
[2019-01-07] MEDS ORDERED: FLUTICASONE 110 MCG TOP PRN (16:19)
[2019-01-07] MEDS ORDERED: ONDANSETRON HCL 4 MG TAB PO PRN (16:19)
[2019-01-07] MEDS ORDERED: MECLIZINE HYDROCHLORIDE 12.5 MG TAB PO PRN (16:19)
[2019-01-07] MEDS: CLINDAMYCIN 150 MG/ML 600 MG in SODIUM CHLORIDE 0.9% 100 ML 100 ML IV SCH ×2 (16:29→23:30)
[2019-01-07] MEDS: NOVOLOG FLEXPEN SC SCH ×2 (17:53→20:33)
[2019-01-07] MEDS ORDERED: GABAPENTIN 300 MG CAP PO SCH (18:00)
[2019-01-07] MEDS: IPRATROPIUM BROMIDE NEB SCH ×2 (19:06→21:40)
[2019-01-07] MEDS: AMITRIPTYLINE 25 MG TAB PO SCH (20:33)
[2019-01-07] MEDS: FLUTICASONE INH SCH (20:34)
[2019-01-07] MEDS: CLONIDINE 0.1 MG TAB PO SCH (20:34)
[2019-01-07] MEDS: SALMETEROL INH SCH (20:34)
[2019-01-07] MEDS: [UNRECOGNIZED DRUG - OTHER] INH SCH (20:34)
[2019-01-07] MEDS ORDERED: DIPHENHYDRAMINE 25 MG CAP PO PRN (20:34)
[2019-01-07] MEDS: PROBENECID 500 MG PO SCH (20:35)
[2019-01-07] MEDS: GABAPENTIN 300 MG CAP PO SCH (20:35)
[2019-01-07] MEDS: CALCIUM CARBONATE 500 MG TAB PO SCH (20:35)
[2019-01-07] MEDS: SENNOSIDES A AND B 8.6 MG TAB PO SCH (20:36)
[2019-01-07] MEDS: SIMVASTATIN 20 MG TAB PO SCH (20:36)
[2019-01-08] MEDS: APAP/OXYCODONE 1 EACH TABLET PO PRN ×5 (01:46→19:25)
[2019-01-08] MEDS: IPRATROPIUM BROMIDE NEB SCH ×4 (05:20→22:48)
[2019-01-08] MEDS: SODIUM CHLORIDE 0.9% FLUSH 10 ML SOL IV SCH ×3 (05:22→18:34)
[2019-01-08 07:38] LABS: HEMOGLOBIN 11.9 gm/dl (12.0-15.5); MEAN CORPUSCULAR HEMOGLOBIN 29.9 pg (27.0-32.0); MEAN CORPUSCULAR HGB CONC 32.2 gm/dl (32.0-36.0)
[2019-01-08] MEDS ORDERED: MONTELUKAST SODIUM 5 MG CTB PO SCH (09:00)
[2019-01-08] MEDS ORDERED: INSULIN DEGLUDEC 100 UNIT SQ SCH (09:00)
[2019-01-08] MEDS ORDERED: CLINDAMYCIN 150 MG/ML SOL ONE (09:11)
[2019-01-08] MEDS ORDERED: SODIUM CHLORIDE 0.9% 100 ML 100 ML IV ONE (09:11)
[2019-01-08] MEDS: NOVOLOG FLEXPEN SC SCH ×4 (09:18→20:51)
[2019-01-08] MEDS: CLINDAMYCIN 150 MG/ML 600 MG in SODIUM CHLORIDE 0.9% 100 ML 100 ML IV SCH (09:24)
[2019-01-08] MEDS: DILTIAZEM XR 180 MG C24 PO SCH (09:28)
[2019-01-08] MEDS: GABAPENTIN 300 MG CAP PO SCH ×2 (09:29→20:48)
[2019-01-08] MEDS: RIVAROXABAN 10 MG TAB PO SCH (09:30)
[2019-01-08] MEDS: PROBENECID 500 MG PO SCH ×2 (09:30→20:49)
[2019-01-08] MEDS: FERROUS GLUCONATE 324 MG TABLET PO SCH (09:30)
[2019-01-08] MEDS: FLUTICASONE INH SCH ×2 (09:37→20:48)
[2019-01-08] MEDS: SALMETEROL INH SCH ×2 (09:37→20:48)
[2019-01-08] MEDS: [UNRECOGNIZED DRUG - OTHER] INH SCH ×2 (09:37→20:48)
[2019-01-08] MEDS: HYDROCHLOROTHIAZIDE/TRIAMTER 25/37.5 CAPSULE PO SCH (09:46)
[2019-01-08] MEDS: CLONIDINE 0.1 MG TAB PO SCH ×2 (09:46→20:47)
[2019-01-08] MEDS: CHOLECALCIFEROL 1,000 IU (25 MCG) TAB PO SCH (09:46)
[2019-01-08] MEDS: CALCIUM CARBONATE 500 MG TAB PO SCH ×2 (09:46→20:48)
[2019-01-08] MEDS: PANTOPRAZOLE SODIUM 40 MG ECT PO SCH (10:27)
[2019-01-08] MEDS: MONTELUKAST SODIUM 10 MG TAB PO SCH (10:28)
[2019-01-08] MEDS: DEXTROSE/SALINE 0.45/KCL 20MEQ 1,000 ML/1,000 ML SOL IV SCH ×2 (12:39→20:03)
[2019-01-08] MEDS: ONDANSETRON 4 MG ODT BU PRN (15:02)
[2019-01-08] MEDS: SENNOSIDES A AND B 8.6 MG TAB PO SCH (20:47)
[2019-01-08] MEDS: AMITRIPTYLINE 25 MG TAB PO SCH (20:50)
[2019-01-08] MEDS: SIMVASTATIN 20 MG TAB PO SCH (20:50)
[2019-01-09] MEDS: APAP/OXYCODONE 1 EACH TABLET PO PRN ×4 (01:07→23:42)
[2019-01-09] MEDS: SODIUM CHLORIDE 0.9% FLUSH 10 ML SOL IV PRN (01:10)
[2019-01-09] MEDS: SODIUM CHLORIDE 0.9% FLUSH 10 ML SOL IV SCH ×4 (01:49→22:25)
[2019-01-09] MEDS: IPRATROPIUM BROMIDE NEB SCH (04:03)
[2019-01-09 06:52] LABS: HEMOGLOBIN 11.6 gm/dl (12.0-15.5); MEAN CORPUSCULAR HEMOGLOBIN 29.9 pg (27.0-32.0); MEAN CORPUSCULAR HGB CONC 32.8 gm/dl (32.0-36.0)
[2019-01-09] MEDS: NOVOLOG FLEXPEN SC SCH ×4 (08:34→20:28)
[2019-01-09] MEDS: CALCIUM CARBONATE 500 MG TAB PO SCH ×2 (08:41→20:26)
[2019-01-09] MEDS: CHOLECALCIFEROL 1,000 IU (25 MCG) TAB PO SCH (08:42)
[2019-01-09] MEDS: RIVAROXABAN 10 MG TAB PO SCH (08:43)
[2019-01-09] MEDS: FERROUS GLUCONATE 324 MG TABLET PO SCH (08:43)
[2019-01-09] MEDS: HYDROCHLOROTHIAZIDE/TRIAMTER 25/37.5 CAPSULE PO SCH (08:43)
[2019-01-09] MEDS: CLONIDINE 0.1 MG TAB PO SCH ×2 (08:43→20:26)
[2019-01-09] MEDS: GABAPENTIN 300 MG CAP PO SCH ×2 (08:43→20:26)
[2019-01-09] MEDS: PANTOPRAZOLE SODIUM 40 MG ECT PO SCH (08:43)
[2019-01-09] MEDS: MONTELUKAST SODIUM 10 MG TAB PO SCH (08:43)
[2019-01-09] MEDS: DILTIAZEM XR 180 MG C24 PO SCH (08:44)
[2019-01-09] MEDS: FLUTICASONE INH SCH ×2 (08:45→20:23)
[2019-01-09] MEDS: SALMETEROL INH SCH ×2 (08:45→20:23)
[2019-01-09] MEDS: [UNRECOGNIZED DRUG - OTHER] INH SCH ×2 (08:45→20:23)
[2019-01-09] MEDS: INSULIN DEGLUDEC 200 UNIT/ML INSULN.PEN SQ SCH (08:45)
[2019-01-09] MEDS: PROBENECID 500 MG PO SCH ×2 (08:49→20:26)
[2019-01-09] MEDS ORDERED: IPRATROPIUM BROMIDE 1 VIAL SOL INH PRN (09:15)
[2019-01-09] MEDS ORDERED: ACETAMINOPHEN 325 MG PO PRN (16:40)
[2019-01-09 16:45] LABS: BASOPHILS % (AUTO) 1 % (0-3); EOSINOPHILS % (AUTO) 3 % (0-9); HEMATOCRIT 39 % (35-47); HEMOGLOBIN 12.4 gm/dl (12.0-15.5); LYMPHOCYTES % (AUTO) 23.8 % (10-50); MEAN CORPUSCULAR HEMOGLOBIN 29.2 pg (27.0-32.0); MEAN CORPUSCULAR HGB CONC 31.7 gm/dl (32.0-36.0); MEAN CORPUSCULAR VOLUME 92 fL (81-99); NEUTROPHILS % (AUTO) 64.1 % (37-80)
[2019-01-09] MEDS ORDERED: ACETAMINOPHEN 325 MG PO ONE (16:45)
[2019-01-09] MEDS ORDERED: KETOROLAC TROMETHAMINE 30 MG/ML SOL IV ONE (17:55)
[2019-01-09] MEDS ORDERED: CEFTRIAXONE 1 GM PDS ONE (18:07)
[2019-01-09] MEDS: CEFTRIAXONE 1 GM PDS 2 GM in SODIUM CHLORIDE 0.9% 100 ML 100 ML IV SCH (18:23)
[2019-01-09] MEDS: AMITRIPTYLINE 25 MG TAB PO SCH (20:24)
[2019-01-09] MEDS: SIMVASTATIN 20 MG TAB PO SCH (20:25)
[2019-01-09] MEDS: SENNOSIDES A AND B 8.6 MG TAB PO SCH (20:28)
[2019-01-09] MEDS: SODIUM CHLORIDE 0.9% 1000ML 1,000 ML IV SCH (23:39)
[2019-01-10] MEDS ORDERED: CEFTRIAXONE 1 GM PDS ONE ×2 (05:01→17:55)
[2019-01-10] MEDS ORDERED: SODIUM CHLORIDE 0.9% 100 ML 100 ML IV ONE ×2 (05:02→17:55)
[2019-01-10] MEDS: CEFTRIAXONE 1 GM PDS 2 GM in SODIUM CHLORIDE 0.9% 100 ML 100 ML IV SCH ×2 (05:19→18:12)
[2019-01-10] MEDS: SCOPOLAMINE 1.5MG PATCH TD SCH (05:48)
[2019-01-10] MEDS: SODIUM CHLORIDE 0.9% FLUSH 10 ML SOL IV SCH ×3 (05:50→19:45)
[2019-01-10] MEDS ORDERED: ALENDRONATE 70 MG PO SCH ×2 (07:00→09:00)
[2019-01-10] MEDS: APAP/OXYCODONE 1 EACH TABLET PO PRN ×3 (07:20→19:43)
[2019-01-10 07:57] LABS: CALCIUM 9.9 mg/dl (8.5-10.1); CARBON DIOXIDE 29.5 mEq/L (21-32); CREATININE 2.36 mg/dl (0.60-1.00)
[2019-01-10 08:00] LABS: HEMOGLOBIN 10.3 gm/dl (12.0-15.5); MEAN CORPUSCULAR HEMOGLOBIN 29.8 pg (27.0-32.0); MEAN CORPUSCULAR HGB CONC 31.8 gm/dl (32.0-36.0)
[2019-01-10] MEDS: NOVOLOG FLEXPEN SC SCH ×4 (09:00→20:01)
[2019-01-10] MEDS: CHOLECALCIFEROL 1,000 IU (25 MCG) TAB PO SCH (09:05)
[2019-01-10] MEDS: FERROUS GLUCONATE 324 MG TABLET PO SCH (09:05)
[2019-01-10] MEDS: GABAPENTIN 300 MG CAP PO SCH ×2 (09:05→20:14)
[2019-01-10] MEDS: PANTOPRAZOLE SODIUM 40 MG ECT PO SCH (09:05)
[2019-01-10] MEDS: PROBENECID 500 MG PO SCH ×2 (09:05→20:16)
[2019-01-10] MEDS: CALCIUM CARBONATE 500 MG TAB PO SCH ×2 (09:05→20:15)
[2019-01-10] MEDS: MONTELUKAST SODIUM 10 MG TAB PO SCH (09:05)
[2019-01-10] MEDS: RIVAROXABAN 10 MG TAB PO SCH (09:05)
[2019-01-10] MEDS: FLUTICASONE INH SCH ×2 (09:08→20:14)
[2019-01-10] MEDS: [UNRECOGNIZED DRUG - OTHER] INH SCH ×2 (09:08→20:14)
[2019-01-10] MEDS: SALMETEROL INH SCH ×2 (09:08→20:14)
[2019-01-10] MEDS: INSULIN DEGLUDEC 200 UNIT/ML INSULN.PEN SQ SCH (09:17)
[2019-01-10] MEDS: SODIUM CHLORIDE 0.9% 1000ML 1,000 ML IV SCH (10:35)
[2019-01-10] MEDS: DILTIAZEM XR 180 MG C24 PO SCH (10:58)
[2019-01-10] MEDS: SODIUM CHLORIDE 0.9% FLUSH 10 ML SOL IV PRN (18:16)
[2019-01-10] MEDS: AMITRIPTYLINE 25 MG TAB PO SCH (20:14)
[2019-01-10] MEDS: SENNOSIDES A AND B 8.6 MG TAB PO SCH (20:16)
[2019-01-10] MEDS: SIMVASTATIN 20 MG TAB PO SCH (20:17)
[2019-01-11] MEDS: SODIUM CHLORIDE 0.9% FLUSH 10 ML SOL IV SCH ×2 (01:57→11:31)
[2019-01-11] MEDS ORDERED: CEFTRIAXONE 1 GM PDS ONE (04:48)
[2019-01-11] MEDS ORDERED: SODIUM CHLORIDE 0.9% 100 ML 100 ML IV ONE (04:48)
[2019-01-11] MEDS: CEFTRIAXONE 1 GM PDS 2 GM in SODIUM CHLORIDE 0.9% 100 ML 100 ML IV SCH (06:10)
[2019-01-11] MEDS: APAP/OXYCODONE 1 EACH TABLET PO PRN ×3 (06:11→16:59)
[2019-01-11] MEDS: SALMETEROL INH SCH ×2 (08:38→20:29)
[2019-01-11] MEDS: FLUTICASONE INH SCH ×2 (08:38→20:29)
[2019-01-11] MEDS: [UNRECOGNIZED DRUG - OTHER] INH SCH ×2 (08:38→20:29)
[2019-01-11] MEDS: NOVOLOG FLEXPEN SC SCH ×4 (08:38→20:38)
[2019-01-11] MEDS: CALCIUM CARBONATE 500 MG TAB PO SCH ×2 (08:39→20:31)
[2019-01-11] MEDS: PROBENECID 500 MG PO SCH ×2 (08:39→20:32)
[2019-01-11] MEDS: GABAPENTIN 300 MG CAP PO SCH ×2 (08:39→20:30)
[2019-01-11] MEDS: DILTIAZEM XR 180 MG C24 PO SCH (08:40)
[2019-01-11] MEDS: PANTOPRAZOLE SODIUM 40 MG ECT PO SCH (08:41)
[2019-01-11] MEDS: CHOLECALCIFEROL 1,000 IU (25 MCG) TAB PO SCH (08:41)
[2019-01-11] MEDS: MONTELUKAST SODIUM 10 MG TAB PO SCH (08:41)
[2019-01-11] MEDS: RIVAROXABAN 10 MG TAB PO SCH (08:41)
[2019-01-11] MEDS: INSULIN DEGLUDEC 200 UNIT/ML INSULN.PEN SQ SCH (08:41)
[2019-01-11] MEDS: FERROUS GLUCONATE 324 MG TABLET PO SCH (08:41)
[2019-01-11] MEDS: AMITRIPTYLINE 25 MG TAB PO SCH (20:28)
[2019-01-11] MEDS: SENNOSIDES A AND B 8.6 MG TAB PO SCH (20:32)
[2019-01-11] MEDS: SIMVASTATIN 20 MG TAB PO SCH (20:40)
[2019-01-11 23:19] VITALS: RESP 18
[2019-01-12] MEDS: APAP/OXYCODONE 1 EACH TABLET PO PRN ×3 (02:05→13:55)
[2019-01-12 06:09] VITALS: TEMP 98.2
[2019-01-12] MEDS: NOVOLOG FLEXPEN SC SCH ×3 (08:38→17:50)
[2019-01-12] MEDS: INSULIN DEGLUDEC 200 UNIT/ML INSULN.PEN SQ SCH (08:46)
[2019-01-12] MEDS: CLONIDINE 0.1 MG TAB PO SCH (08:46)
[2019-01-12] MEDS: PROBENECID 500 MG PO SCH (08:46)
[2019-01-12] MEDS: RIVAROXABAN 10 MG TAB PO SCH (08:47)
[2019-01-12] MEDS: FERROUS GLUCONATE 324 MG TABLET PO SCH (08:47)
[2019-01-12] MEDS: PANTOPRAZOLE SODIUM 40 MG ECT PO SCH (08:48)
[2019-01-12] MEDS: CALCIUM CARBONATE 500 MG TAB PO SCH (08:48)
[2019-01-12] MEDS: DILTIAZEM XR 180 MG C24 PO SCH (08:48)
[2019-01-12] MEDS: GABAPENTIN 300 MG CAP PO SCH (08:49)
[2019-01-12] MEDS: MONTELUKAST SODIUM 10 MG TAB PO SCH (08:49)
[2019-01-12] MEDS: FLUTICASONE INH SCH (08:53)
[2019-01-12] MEDS: SALMETEROL INH SCH (08:53)
[2019-01-12] MEDS: [UNRECOGNIZED DRUG - OTHER] INH SCH (08:53)
[2019-01-12] MEDS: CHOLECALCIFEROL 1,000 IU (25 MCG) TAB PO SCH (08:56)
[2019-01-12 15:38] VITALS: BP 130/74; PULSE 84; O2SAT 95
== END 2019-01-12 17:40 | disposition home or self-care (01) | DRG 470 ==
LOC: ACUTE CARE 05:23
PROVIDERS: ADMIT Orthopaedic Surgery; ATTEND Orthopaedic Surgery
PROC: F01L0FZ Muscle Performance Assessment of Musculoskeletal System - Lower Back / Lower Extremity using Assistive, Adaptive, Supportive or Protective Equipment (ICD-10-PCS; 2019-01-07)
PROC: F01L5YZ Range of Motion and Joint Integrity Assessment of Musculoskeletal System - Lower Back / Lower Extremity using Other Equipment (ICD-10-PCS; 2019-01-07)
PROC: F01ZBFZ Bed Mobility Assessment using Assistive, Adaptive, Supportive or Protective Equipment (ICD-10-PCS; 2019-01-07)
PROC: 0SRD0J9 Replacement of Left Knee Joint with Synthetic Substitute, Cemented, Open Approach (ICD-10-PCS; principal; 2019-01-07 08:00)
PROC: F01L5ZZ Range of Motion and Joint Integrity Assessment of Musculoskeletal System - Lower Back / Lower Extremity (ICD-10-PCS; 2019-01-08)
PROC: F02Z3ZZ Grooming/Personal Hygiene Assessment (ICD-10-PCS; 2019-01-08)
DX: M17.0 Bilateral primary osteoarthritis of knee (principal); I50.22 Chronic systolic (congestive) heart failure; J98.11 Atelectasis; M25.562 Pain in left knee; M25.561 Pain in right knee; E11.22 Type 2 diabetes mellitus with diabetic chronic kidney disease; E11.49 Type 2 diabetes mellitus with other diabetic neurological complication; N18.3 Chronic kidney disease, stage 3 (moderate); Z79.4 Long term (current) use of insulin; M79.7 Fibromyalgia; J45.909 Unspecified asthma, uncomplicated; Z96.652 Presence of left artificial knee joint; R06.02 Shortness of breath; R50.9 Fever, unspecified; R41.0 Disorientation, unspecified; I10 Essential (primary) hypertension
CPT/HCPCS: 36415; 71045; 73560; 80048; 82962; 85025; 85027; 85049; 87040; 94150; 94640; 94760; 99070; J0696; J1885; J2250; J2274; J2405; J2765; J3490; A6402; A9270-GY; J1815; J2704; Q3014